=== PATIENT | male | born 2005 | race Two or more races ===

== ENCOUNTER → 2024-12-08 | Outpatient (CLI) | payer OTHER, SELFPAY ==
[2024-12-08 13:21] LABS: Amphetamine/Methamp Scrn,U Negative (Negative); Barbiturate Screen,Urine Negative (Negative); Benzodiazepines Screen,Urine Negative (Negative); Benzoylecgonine Screen, Ur Negative (Negative); Fentanyl Screen,Urine Negative (Negative); Opiate Screen,Urine Negative (Negative); THC Screen,Urine Negative (Negative)
== END | disposition home or self-care (01) ==
LOC: SLDO 11:23
PROVIDERS: PCP Student in an Organized Health Care Education/Training Program; Referring Provider Student in an Organized Health Care Education/Training Program; Visit Provider Student in an Organized Health Care Education/Training Program
DX: Z13.89 Encounter for screening for other disorder (principal)
CPT/HCPCS: 80307

== ENCOUNTER → 2025-07-12 | Outpatient (CLI) | payer OTHER, SELFPAY ==
[2025-07-12 11:29] LABS: COVID-19 Antigen (In-House) Negative (Negative); Influenza A Ag Negative; Influenza B Ag Negative; Strep A Rapid Negative (Negative)
== END | disposition home or self-care (01) ==
LOC: COPL 09:47
PROVIDERS: PCP Family Medicine; Referring Provider Nurse Practitioner Family; Visit Provider Nurse Practitioner Family
DX: B34.9 Viral infection, unspecified (principal)
CPT/HCPCS: 87502; 87651; 87811